=== PATIENT | female | born 1965 | race Caucasian/White ===

== ENCOUNTER 2023-12-30 09:53 | Outpatient (OUT) | payer OTHER, SELFPAY ==
--- NOTE | 2023-12-30 09:57 | US_ITS ---
The [address] [address] Patient Name: GARY FORTE MRN: [id number] date: 1965 Sex: F Assigned Patient Location: US Current Patient Location: Accession/Order Number: [id number] Exam Date: 12/30/2023 10:06 Report Date: 12/31/2023 00:35 At the request of: MARIPOSA FRANK Procedure: US right upper quadrant EXAM: US right upper quadrant HISTORY: Elevated Liver Function Test R79.89 COMPARISON: None. TECHNIQUE: Right upper quadrant ultrasound performed FINDINGS: Features of hepatic steatosis. No focal liver lesions. No visualized gallstones. No biliary duct dilatation Pancreas not well-seen. Right kidney within normal limits. US/US right upper quadrant IMPRESSION: Features of hepatic steatosis. No gallstones or biliary duct dilatation Electronically authenticated by: JANE ORELLANA Date: 12/31/2023 00:35
== END 2023-12-30 09:54 | disposition home or self-care (01) ==
LOC: US 09:53
PROVIDERS: PCP Family Medicine; Visit Provider Family Medicine
DX: R79.89 Other specified abnormal findings of blood chemistry (principal)
CPT/HCPCS: 76705

== ENCOUNTER 2024-12-12 08:25 | Outpatient (OUT) | payer OTHER, SELFPAY ==
--- OUTSIDE RECORDS SUMMARY | 2024-12-05 13:45 | XMS_ITS | Encounter Summary ---
Author Organization [facility] Address [address] [facility] [place] [address] Care Team Providers Care Mule Operator Name Role Phone Norma Eli MD Primary Care Provider [phone] Reason for Visit * Reason Comments Pain Encounter Details Date Type Department Care Team (Late st Contact Info) Description 12/05/2024 1:45 PM EDT Office Visit [facility] [address] [facility] [address] [place] [phone] Jr. Peter Michele, DO [address] [place] [address] Social History Tobacco Use Types Packs/Day Years Used Date Smoking Tobacco: Never Smokeless Tobacco: Never Alcohol Use Standard Drinks/Week Comments Not Currently 10 (1 standard drink = 0.6 oz pu re alcohol) N/A Beer B1300 Health Literacy Answer Date Recor ded How often do you need to hav e someone help you when you read instructions, pamphlets, or other written material from your doctor or pharmacy? Never 12/07/2024 Humiliation, Afraid, Rape, and Kick questionnair e Answer Date Recorded Within the last year, have y ou been afraid of your partner or ex-partner? No 12/07/2024 Within the last year, have y ou been humiliated or emotionally abused in other ways by your partner or ex-partner? No Within the last year, have y ou been kicked, hit, slapped, or otherwise physically hurt by your partner or ex-partner? No 12/07/2024 Within the last year, have y ou been raped or forced to have any kind of sexual activity by your partner or ex-partner? No 12/07/2024 Social Connection and Isolat ion Panel [NHANES] Answer Date Recorded In a typical week, how many times do you talk on the phone with family, friends, or neighbors? More than three times a week 12/07/2024 How often do you get togethe r with friends or relatives? Twice a week 12/07/2024 How often do you attend chur or jew services? Never 12/07/2024 Do you belong to any clubs o r organizations such as rastafari groups, unions, fraternal or athletic groups, or school groups? No 12/07/2024 How often do you attend meet ings of the clubs or organizations you belong to? Never 12/07/2024 Are you , , di vorced, , never , or living with a partner? 12/07/2024 AUDIT-C Answer Date Recorded Q1: How often do you have a drink containing alcohol? Never 12/07/2024 Q2: How many drinks containi ng alcohol do you have on a typical day when you are drinking? Patient does not drink Q3: How often do you have si x or more drinks on one occasion? Never 12/07/2024 Overall Financial Resource Strain (CARDIA) Answe r Date Recorded How hard is it for you to pa y for the very basics like food, housing, medical care, and heating? Not hard at all 12/07/2024 [facility] Occupat ional Health - Occupational Stress Questionnaire Answer Date Recorded Do you feel stress - tense, restless, nervous, or anxious, or unable to sleep at night because your mind is troubled all the time - these days? Only a little 12/07/2024 Exercise Vital Sign Answer Date Recorde d On average, how many days pe r week do you engage in moderate to strenuous exercise (like a brisk walk)? 7 days 12/07/2024 On average, how many minutes do you engage in exercise at this level? 60 min 12/07/2024 Hunger Vital Sign Answer Date Recorded Within the past 12 months, y ou worried that your food would run out before you got the money to buy more. Never true 12/08/19 25 Within the past 12 months, t he food you bought just didn't last and you didn't have money to get more. Never true 12/07/2024 PRAPARE - Transportation Answer Date Re corded In the past 12 months, has l ack of transportation kept you from medical appointments or from getting medications? No 11/27 In the past 12 months, has l ack of transportation kept you from meetings, work, or from getting things needed for daily living? No 12/07/2024 Housing Stability Vital Sign Answer Tom e Recorded In the last 12 months, was t here a time when you were not able to pay the mortgage or rent on time? No 04/13/2023 In the last 12 months, how many places have you lived? 1 04/13/2023 In the last 12 months, was t here a time when you did not have a steady place to sleep or slept in a detention (including now)? No 04/13/2023 Housing Stability Vital Sign Answer Tom e Recorded In the last 12 months, was t here a time when you were not able to pay the mortgage or rent on time? No 12/07/2024 Number of Times Moved in the Last Year Not on fi le 12/07/2024 At any time in the past 12 m [facility], were you homeless or living in a detention (including now)? No 12/07/2024 Comments Unknown Sex and Gender Information Value Date Recorded Sex Assigned at Female 01/02/2023 8:41 PM EDT Legal Sex Female 7:09 PM EDT Gender Identity Female 01/02/2023 8:41 PM EDT Sexual Orientation Straight 01/02/2023 8: 41 PM EDT documented as of this encounter Functional Status * Audit-C Score Answer Date of Assessment Author 0 12/07/2024 8:39 AM EDT Mychart, Generic * Q1: How often do you have a drink containing alcohol? Answer Date of Assessment Author Never 12/07/2024 8:39 AM EDT Mychart, Generic * Q2: How many drinks containing alcohol do you have on a typical day when you are drinking? Answer Date of Assessment Author Patient does not drink 12/07/2024 8:39 AM EDT My chart, Generic * Q3: How often do you have six or more drinks on one occasion? Answer Date of Assessment Author Never 12/07/2024 8:39 AM EDT Mychart, Generic documented as of this encounter Plan of Treatment Upcoming Encounters Date Type Department Care Team (Late st Contact Info) Description 12/12/2024 11:30 AM EDT [facility] [address] [facility] [address] [place] [phone] 12/18/2024 2:00 PM EDT Office Visit [facility] [address] [place] [phone] Av Mcdonald, PA [address] [place] [phone] 12/19/2024 8:30 AM EDT Office Visit [facility] [address] [facility] [address] [place] [address] Maria Eugenia Dangelo NP [address] [email or web address] [address] [place] [address] 01/24/2025 2:00 PM EDT Office Visit [facility] [address] [place] [phone] Richard Redding ACADEMIC SUPPORT COORDINATOR [address] [place] [address] 02/05/2025 9:15 AM EDT Office Visit [facility] [address] [facility] [address] [place] [address] Mark Hadley DPM [address] [facility] [[email or web address]] [address] [place] [address] documented as of this encounter Visit Diagnoses Not on filedocumented in this encounter Care Teams Mule Operator Relationship Specialty Start Date End Date Norma Eli MD [address] [place] [address] PCP - General Family Medicine 10/05/22 documented as of this encounter
--- OUTSIDE RECORDS SUMMARY | 2024-12-11 09:30 | XMS_ITS | Encounter Summary ---
Author Organization [facility] Address [address] [place] [address] Care Team Providers Care Physical Education Department Chair Name Role Phone Norma Eli MD Primary Care Provider [phone] Encounter Details Date Type Department Care Team (Late st Contact Info) Description 12/11/2024 9:30 AM EDT Office Visit [facility] [address] [facility] [address] [place] [phone] Maria Eugenia Dangelo, SCRAP HOIST OPERATOR [address] [facility] 110 [place] [address] Wellness examination (Primary Dx); Carpal tunnel syndrome of right wrist; Acute strain of neck muscle, sequela; Thoracic myofascial strain, sequela; Moderate mixed hyperlipidemia not requiring statin therapy ; Family history of colon cancer; ETD (Eustachian tube dysfunction), bilateral; Seasonal allergic rhinitis due to pollen; Encounter for screening mammogram for malignant neoplasm of breast Social History Tobacco Use Types Packs/Day Years Used Date Smoking Tobacco: Never Smokeless Tobacco: Never Tobacco Cessation:Counseling Given: Yes Alcohol Use Standard Drinks/Week Comments Not Currently [...] week 12/07/2024 How often do you attend [facility] or baptism services? Never 12/07/2024 Do you belong to any clubs o r organizations such as advent groups, unions, fraternal or athletic groups, or [...] and heating? Not hard at all 12/07/2024 PHQ-2 Answer Date Recorded Patient Health Questionnaire-2 Score 0 12/11/2024 [facility] Occupat ional Health - Occupational Stress [...] place to sleep or slept in a custodial (including now)? No 04/13/2023 Housing Stability Vital Sign Answer Tom e Recorded In the last 12 months, was t here a time when you were not able to pay the mortgage or rent on time? No 12/07/2024 Number of Times Moved in the Last Year Not on fi le 12/07/2024 At any time in the past 12 m [facility], were you homeless or living in a custodial (including now)? No 12/07/2024 Comments Unknown Sex and Gender Information Value Date Recorded Sex Assigned at Female 01/02/2023 8:41 PM EDT Legal Sex Female 7:09 PM EDT Gender Identity Female 01/02/2023 8:41 PM EDT Sexual Orientation Straight 01/02/2023 8: 41 PM EDT documented as of this encounter Last Filed Vital Signs Vital Sign Reading Time Taken Comments Blood Pressure 124/74 12/11/2024 9:38 AM EDT Pulse 68 12/11/2024 9:38 AM EDT Temperature - - Respiratory Rate 16 12/11/2024 9:38 AM EDT Oxygen Saturation 98% 12/11/2024 9:38 AM EDT Inhaled Oxygen Concentration - - Weight 65.3 kg (144 lb) 12/11/2024 9:38 AM EDT Height 160 cm (5' 3 ) 12/11/2024 9:38 AM EDT Body Mass Index 25.51 12/11/2024 9:38 AM EDT documented in this encounter Functional Status * Over the past 2 weeks, how often have you been bothered by any of the following problems? Question Answer Date of Assessment Author Little interest or pleasure in doing things Not at all 12/11/2024 9:32 AM EDT JULI VINES Feeling down, depressed, or hopeless Not at all 11/27 9:32 AM EDT JULI VINES Patient Health Questionnaire-2 Score 0 11/27 9:32 AM EDT JULI VINES documented as of this encounter Progress Notes * Maria Eugenia Dangelo NP - 12/11/2024 9:30 AM EDT Images from the original note were not included. Subjective Patient ID: Yesenia Serrano is a 59 y.o. female who presents for a wellness. Yesenia presents today for a yearly wellness. Patient is due for labs and mammogram. Over the past 2 weeks, how often have you been bothered by any of the following problems? Little interest or pleasure in doing things: Not at all Feeling down, depressed, or hopeless: Not at all Patient Health Questionnaire-2 Score: 0 Current Outpatient Medications on File Prior to Visit Medication Sig Dispense Refill Alpha-Lipoic Acid 300 MG capsule fexofenadine-pseudoephedrine ER (Charleen-D 24) 180-240 MG 24 hr tablet Take 1 tablet by mouth DailyDo not crush, chew, or split. 30 tablet 3 lovastatin (Mevacor) 40 MG tablet Multiple Vitamins-Minerals (ALIVE WOMENS GUMMY PO) Take 1 each by mouth in the morning. omeprazole (PriLOSEC) [address] capsule [DISCONTINUED] baclofen (Lioresal) 10 MG tablet Take 1 tablet (10 mg) by mouth in the morning and 1tablet (10 mg) in the evening and 1 tablet (10 mg) before bedtime. (Patient not taking: Reported on12/05/2024) 90 tablet 3 No current facility-administered medications on file prior to visit. I have reviewed and reconciled the history and medication list with the patient today. No Known Allergies Social History Tobacco Use Smoking status: Never Smokeless tobacco: Never Vaping Use Vaping status: Never Used Substance Use Topics Alcohol use: Not Currently Alcohol/week: 10.0 standard drinks of alcohol Comment: N/A Beer Drug use: Never Family History Problem Relation Name Age of Onset Brain Aneurysm Mother Colon cancer Father 33 Cancer Father's Brother Dilshad Fuentes Other (Bladder cancer) Maternal Grand[place] Diabetes Maternal Grandfather Jaylin [place] Diabetes Paternal Grandmother Past Medical History: Diagnosis Date Fractured hand right Headache High cholesterol (HHS-HCC) x2 Reflux esophagitis Past Surgical History: Procedure Laterality Date BUNIONECTOMY 02/27 & 12 CARPAL TUNNEL RELEASE Right 08/30/2024 RT CTR- DR QUISPE SECTION, LOW TRANSVERSE COLONOSCOPY w/Dr. vEans CYST REMOVAL Left wrist Visit Vitals Smoking Status Never Review of Systems Constitutional: Negative. HENT: Negative. Eyes: Negative. Respiratory: Negative. Cardiovascular: Negative. Gastrointestinal: Negative. Genitourinary: Negative. Musculoskeletal: Negative. Skin: Negative. Neurological: Negative. Psychiatric/Behavioral: Negative. Endocrine: Negative. Objective Physical Exam Vitals reviewed. Constitutional: Appearance: Normal appearance. HENT: Head: Normocephalic. Right Ear: Tympanic membrane normal. Left Ear: Tympanic membrane normal. Nose: Nose normal. Mouth/Throat: Mouth: Mucous membranes are moist. Pharynx: Oropharynx is clear. Eyes: Conjunctiva/sclera: Conjunctivae normal. Pupils: Pupils are equal, round, and reactive to light. Cardiovascular: Rate and Rhythm: Normal rate. Pulmonary: Effort: Pulmonary effort is normal. Abdominal: General: Bowel sounds are normal. Palpations: Abdomen is soft. Musculoskeletal: General: Normal range of motion. Cervical back: Neck supple. Skin: General: Skin is warm and dry. Neurological: General: No focal deficit present. Mental Status: She is alert and oriented to person, place, and time. Psychiatric: Mood and Affect: Mood normal. Behavior: Behavior normal. Thought Content: Thought content normal. Judgment: Judgment normal. Assessment/Plan Diagnoses and all orders for this visit: Wellness examination - CBC; Future - Comprehensive metabolic panel; Future Wellness form reviewed in detail with the patient. Encouraged patient to stay up to date on immunizations and preventative testing. Encouraged healthy diet, stay active. Will continue with yearly wellness exams. Carpal tunnel syndrome of right wrist Pt had surgery on the right. She is going to have surgery on the left next month with Dr. Quispe. Acute strain of neck muscle, sequela This condition is resolved Thoracic myofascial strain, sequela This condition is resolved Moderate mixed hyperlipidemia not requiring statin therapy - CBC; Future - Comprehensive metabolic panel; Future - Lipid panel; Future Await lab Family history of colon cancer Due for colonoscopy 2028. She is asymptomatic. ETD (Eustachian tube dysfunction), bilateral - CBC; Future Pt has been taking Charleen D and this condition has resolved. Seasonal allergic rhinitis due to pollen - CBC; Future - Comprehensive metabolic panel; Future This is a chronic medical condition that is stable since last assessment. No changes in treatment are suggested at this time. Encounter for screening mammogram for malignant neoplasm of breast - Bilateral screening mammogram; Future Await mammogram No follow-ups on file. documented in this encounter Plan of Treatment Upcoming Encounters Date Type Department Care Team (Late st Contact Info) Description 12/12/2024 11:30 AM EDT Ancillary Procedure [facility] [address] [place] [address] 12/18/2024 2:00 PM EDT Office Visit [facility] [address] [place] [address] Av Mcdonald PA [address] [place] [address] 12/19/2024 8:30 AM EDT Office Visit [facility] [address] [facility] [address] [place] [phone] Maria Eugenia Dangelo NP [address] [facility] [address] [place] [address] 01/24/2025 2:00 PM EDT Office Visit [facility] [address] [place] [phone] Richard Redding, MAE [address] [place], [place] [phone] 02/05/2025 9:15 AM EDT Office Visit [facility] [address] [facility] [address] [place] [phone] Mark Hadley DPM [address] [facility] [address] [place] [address] Scheduled Orders Name Type Priority Associated Diagnoses Orde r Schedule CBC Lab Routine Wellness examination Moderate mixed hyperlipidemia not requiring statin therapy ETD (Eustachian tube dysfunction), bilateral Seasonal allergic rhinitis due to pollen Expected: 12/11/2024 (Approximate), Expires: 12/11/2025 Comprehensive metabolic panel Lab Routine Wellness examination Moderate mixed hyperlipidemia not requiring statin therapy Seasonal allergic rhinitis due to pollen Expected: 12/11/2024 (Approximate), Expires: 12/11/2025 Lipid panel Lab Routine Moderate mixed hyperlipidemia not requiring statin therapy Expected: 12/11/2024 (Approximate), Expires: 12/11/2025 Bilateral screening mammogram with tomosynthesis Imaging Routine Encounter for screening mammogram for malignant neoplasm of breast Expected: 12/11/2024, Expires: 02/11/2026 documented as of this encounter Visit Diagnoses Diagnosis Wellness examination- Primary Carpal tunnel syndrome of right wrist Acute strain of neck muscle, sequela Thoracic myofascial strain, sequela Moderate mixed hyperlipidemia not requiring statin therapy Family history of colon cancer Family history of malignant neoplasm of gastrointestinal tract ETD (Eustachian tube dysfunction), bilateral Seasonal allergic rhinitis due to pollen Encounter for screening mammogram for malignant neoplasm of breast documented in this encounter Care Teams Physical Education Department Chair Relationship Specialty Start Date End Date Norma Eli MD [address] [place] [address] PCP - General Family Medicine 10/05/22 documented as of this encounter
--- OUTSIDE RECORDS SUMMARY | 2024-12-12 08:29 | XMS_ITS | Encounter Summary ---
Author Organization [facility] Address [address] [place] [address] Care Team Providers Care Telecom Field Technician Name Role Phone Norma Frank MD Primary Care Provider [phone] Encounter Details Date Type Department Care Team (Late st Contact Info) Description 12/31/2023 Clinisync Result Encounter [facility] External Department Unsolicited Norma Frank MD [address] [place] [address] Social History Tobacco Use Types Packs/Day Years Used Date Smoking Tobacco: Never Smokeless Tobacco: Never Alcohol Use Standard Drinks/Week Comments Yes 10 (1 standard drink = 0.6 oz pu re alcohol) Humiliation, Afraid, Rape, and Kick questionnair e Answer Date Recorded Within the last year, have y ou been afraid of your partner or ex-partner? No 04/13/2023 Within the last year, have y ou been humiliated or emotionally abused in other ways by your partner or ex-partner? No Within the last year, have y ou been kicked, hit, slapped, or otherwise physically hurt by your partner or ex-partner? No 04/13/2023 Within the last year, have y ou been raped or forced to have any kind of sexual activity by your partner or ex-partner? No 04/13/2023 Social Connection and Isolat ion Panel [NHANES] Answer Date Recorded In a typical week, how many times do you talk on the phone with family, friends, or neighbors? More than three times a week 04/13/2023 How often do you get togethe r with friends or relatives? More than three times a week 04/13/2023 How often do you attend chur ch or jain services? Never 04/13/2023 Do you belong to any clubs o r organizations such as episcopal groups, unions, fraternal or athletic groups, or school groups? No 04/13/2023 How often do you attend meet ings of the clubs or organizations you belong to? Never 04/13/2023 Are you , , di vorced, , never , or living with a partner? 04/13/2023 AUDIT-C Answer Date Recorded Q1: How often do you have a drink containing alcohol? 4 or more times a week 06/12/2023 Q2: How many drinks containi ng alcohol do you have on a typical day when you are drinking? 3 or 4 Q3: How often do you have si x or more drinks on one occasion? Daily or almost daily 06/12/2023 Overall Financial Resource Strain (CARDIA) Answe r Date Recorded How hard is it for you to pa y for the very basics like food, housing, medical care, and heating? Not hard at all 04/13/2023 [facility] of Occupat ional Health - Occupational Stress Questionnaire Answer Date Recorded Do you feel stress - tense, restless, nervous, or anxious, or unable to sleep at night because your mind is troubled all the time - these days? Rather much 04/13/2023 Exercise Vital Sign Answer Date Recorde d On average, how many days pe r week do you engage in moderate to strenuous exercise (like a brisk walk)? 1 day 04/13/2023 On average, how many minutes do you engage in exercise at this level? 10 min 04/13/2023 Hunger Vital Sign Answer Date Recorded Within the past 12 months, y ou worried that your food would run out before you got the money to buy more. Never true 04/13/20 23 Within the past 12 months, t he food you bought just didn't last and you didn't have money to get more. Never true 04/13/2023 PRAPARE - Transportation Answer Date Re corded In the past 12 months, has l ack of transportation kept you from medical appointments or from getting medications? No 03/30 In the past 12 months, has l ack of transportation kept you from meetings, work, or from getting things needed for daily living? No 04/13/2023 Housing Stability Vital Sign Answer [...] place to sleep or slept in a mcc (including now)? No 04/13/2023 Comments Unknown Sex and Gender Information Value Date Recorded Sex Assigned at Female 01/02/2023 8:41 PM EDT Legal Sex Female 7:09 PM EDT Gender Identity Female 01/02/2023 8:41 PM EDT Sexual Orientation Straight 01/02/2023 8: 41 PM EDT documented as of this encounter Plan of Treatment Upcoming Encounters Date Type Department Care Team (Late st Contact Info) Description 12/12/2024 11:30 AM EDT Ancillary Procedure [facility] [address] [facility] 130 [place] [address] 12/18/2024 2:00 PM EDT Office Visit [facility] [address] [place] [address] Av Mcdonald PA [address] [place] [address] 12/19/2024 8:30 AM EDT Office Visit [facility] [address] [facility] 110 [place] [phone] Maria Eugenia Dangelo NP [address] [facility] 110 [place] [address] 01/24/2025 2:00 PM EDT Office Visit [facility] [address] [facility] [place] [address] Richard Redding, MAE 629 [place], [place] [address] 02/05/2025 9:15 AM EDT Office Visit [facility] [address] [place] [address] Mark Hadley, KELLEY [address] [place] [address] documented as of this encounter Procedures Procedure Name Priority Date/Time Associated Diagnosis Comments US RIGHT UPPER QUADRANT 12/31/2023 12:35 AM EDT documented in this encounter Results * US RIGHT UPPER QUADRANT (12/31/2023 12:35 AM EDT) Anatomical Region Laterality Modality Other 12/31/2023 12:3 5 AM EDT Narrative 12/31/2023 12:38 AM EDT [place] [id number] Ultrasound Report Signed Patient: GARY FORTE MR#: [id number] : 1965 Acct:[id number] Age/Sex: 58 / F ADM Date: 12/30/23 Loc: US Attending Dr: NORMA FRANK Ordering Physician: NORMA FRANK Date of Service: 12/30/23 Procedure(s): US right upper quadrant Accession Number(s): [id number] cc: NORMA FRANK [address] [address] Patient Name: GARY FORTE MRN: [id number] date: 1965 Sex: F Assigned Patient Location: US Current Patient Location: Accession/Order Number: [id number] Exam Date: 12/30/2023 10:06 Report Date: 12/31/2023 00:35 At the request of: NORMA FRANK Procedure: US right upper quadrant EXAM: US right upper quadrant HISTORY: Elevated Liver Function Test R79.89 COMPARISON: None. TECHNIQUE: Right upper quadrant ultrasound performed FINDINGS: Features of hepatic steatosis. No focal liver lesions. No visualized gallstones. No biliary duct dilatation Pancreas not well-seen. Right kidney within normal limits. US/US right upper quadrant IMPRESSION: Features of hepatic steatosis. No gallstones or biliary duct dilatation Electronically authenticated by: JANE ORELLANA Date: 12/31/2023 00:35 Dictated By: Jane Orellana M.A. Signed By: 12/31/2337 DD/ TD/TT: Stain Remover: Procedure Note Radiology, Radiologist, MD - 12/31/2023 [place] [address] Ultrasound Report Signed Patient: GARY FORTEMR#: [id number] : 1965Acct:[id number] Age/Sex: 58 / FADM Date: 12/30/23 Loc: US Attending Dr: NORMA FRANK Ordering Physician: NORMA FRANK Date of Service: 12/30/23 Procedure(s): US right upper quadrant Accession Number(s): [id number] cc: NORMA FRANK [place] [id number] Patient Name: GARY FORTE MRN: [id number] date: 1965 Sex: F Assigned Patient Location: US Current Patient Location: Accession/Order Number: [id number] Exam Date: 12/30/2023 10:06 Report Date: 12/31/2023 00:35 At the request of: NORMA FRANK Procedure: US right upper quadrant EXAM: US right upper quadrant HISTORY: Elevated Liver Function Test R79.89 COMPARISON: None. TECHNIQUE: Right upper quadrant ultrasound performed FINDINGS: Features of hepatic steatosis. No focal liver lesions. Novisualized gallstones. No biliary duct dilatation Pancreas not well-seen. Rightkidney within normal limits. US/US right upper quadrant IMPRESSION: Features of hepatic steatosis. No gallstones or biliary duct dilatation Electronically authenticated by: JANE ORELLANA Date: 12/31/2023 00:35 Dictated By: Jane Orellana M.A. Signed By:12/31/23 0038 DD/ 003 TD/TT: Stain Remover: us Norma Frank MD [facility] Final Result documented in this encounter Visit Diagnoses Not on filedocumented in this encounter Care Teams Telecom Field Technician Relationship Specialty Start Date End Date Norma Frank MD [address] [place] [address] PCP - General Family Medicine 10/05/22 documented as of this encounter
--- OUTSIDE RECORDS SUMMARY | 2024-12-12 08:29 | XMS_ITS | Encounter Summary ---
Author Organization [facility] Address [address] [place] [address] Care Team Providers Care Legislative Aide Name Role Phone Norma Eli MD Primary Care Provider [phone] Encounter Details Date Type Department Care Team (Late st Contact Info) Description 10/25/2023 Abstract [facility] 112 [facility] 110 [place] [address] Norma Eli MD 112 [facility] 110 [place] [address] Social History Tobacco Use Types Packs/Day Years [...] often do you attend chur ch or advent services? Never 04/13/2023 Do you belong to any clubs o r organizations such as anglican groups, unions, fraternal or athletic groups, or [...] and heating? Not hard at all 04/13/2023 [facility] of Occupat ionnd Health - Occupational Stress Questionnaire Answer Date [...] No 04/13/2023 Housing Stability Vital Sign Answer Otm e Recorded In the last 12 months, [...] place to sleep or slept in a intermediate (including now)? No 04/13/2023 Comments Unknown Sex [...] 12/12/2024 11:30 AM EDT Ancillary Procedure [facility] [address] [place] [facility] [facility] 130 [place] [address] 12/18/2024 2:00 PM EDT Office Visit [facility] [address] [place] [address] Av Mcdonald PA [address] [place] [address] 12/19/2024 8:30 AM EDT Office Visit [facility] 112 [facility] 110 [place] [address] Maria Eugenia Dangelo RESHIPPING CLERK 112 [facility] 110 [place] [address] 01/24/2025 2:00 PM EDT Office Visit [facility] 629 [place] [address] Richard Redding, MAE 629 [place] [address] 02/05/2025 9:15 AM EDT Office Visit [facility] [address] [facility] 100 [place] [address] Mark Hadley DPM [address] [facility] 100 [place] [address] documented as of this encounter Visit Diagnoses Not on filedocumented in this encounter Care Teams Legislative Aide Relationship Specialty Start Date End Date Norma Eli MD 112 [facility] 110 [place] [address] PCP - General Family Medicine 10/05/22 documented as of this encounter
--- OUTSIDE RECORDS SUMMARY | 2024-12-12 08:29 | XMS_ITS | Encounter Summary ---
Author Organization [facility] Address [address] [place] [address] Care Team Providers Care Tie Up Worker Name Role Phone Norma Eli MD Primary Care Provider [phone] Encounter Details Date Type Department Care Team (Late st Contact Info) Description 03/06/2024 Abstract [facility] 112 [address] [facility] 110 [place] [address] Norma Eli MD 112 [facility] 110 [place] [address] Social History Tobacco Use Types Packs/Day Years Used Date Smoking Tobacco: Never Smokeless Tobacco: Never Alcohol Use Standard Drinks/Week Comments Yes 10 (1 standard drink = 0.6 oz pu re alcohol) N/A Beer Humiliation, Afraid, Rape, and Kick questionnair e [...] 04/13/2023 How often do you attend chur or pentecostal services? Never 04/13/2023 Do you belong to any clubs o r organizations such as religious groups, unions, fraternal or athletic groups, or [...] and heating? Not hard at all 04/13/2023 [facility] of Occupat ionwy Health - Occupational Stress Questionnaire Answer Date [...] place to sleep or slept in a long-term (including now)? No 04/13/2023 Comments Unknown Sex [...] 12/12/2024 11:30 AM EDT Ancillary [facility] [address] [facility] [facility] 130 [place] [address] 12/18/2024 2:00 PM EDT Office Visit [facility] [address] [place] [address] Av Mcdonald PA [address] [place] [address] 12/19/2024 8:30 AM EDT Office Visit [facility] 112 [facility] 110 [place] [address] Maria Eugenia Dangelo, PER DIEM PHYSICAL THERAPIST [address] [facility] 110 [place] [address] 01/24/2025 2:00 PM EDT Office Visit [facility] 629 [facility] [place] [place] [address] Richard Redding, PER DIEM PHYSICAL THERAPIST 629 [place] [address] 02/05/2025 9:15 AM EDT Office Visit [facility] [address] [facility] 100 [place] [address] Mark Hadley DPM [address] [facility] 100 [place] [address] documented as of this encounter Visit Diagnoses Not on filedocumented in this encounter Care Teams Tie Up Worker Relationship Specialty Start Date End Date Norma Eli MD [address] [place] [address] 110 [place] [address] PCP - General Family Medicine 10/05/22 documented as of this encounter
--- OUTSIDE RECORDS SUMMARY | 2024-12-12 08:29 | XMS_ITS | Encounter Summary ---
Author Organization [facility] Address [address] [place] [address] Care Team Providers Care Cut Lace Machine Operator Name Role Phone Norma Eli MD Primary Care Provider [phone] Encounter Details Date Type Department Care Team (Late st Contact Info) Description 02/22/2024 Abstract [facility] 112 [facility] 110 [place] [address] Norma Eli MD 112 [facility] 110 [place] [address] Social History Tobacco Use Types Packs/Day Years [...] How often do you attend chur or baptism services? Never 04/13/2023 Do you belong to any clubs o r organizations such as amish groups, unions, fraternal or athletic groups, or [...] and heating? Not hard at all 04/13/2023 [facility] of Occupat ionsc Health - Occupational Stress Questionnaire Answer Date [...] place to sleep or slept in a skilled nursing (including now)? No 04/13/2023 Comments Unknown Sex [...] 12/12/2024 11:30 AM EDT Ancillary Procedure [facility] [address] [facility] 130 [place] [address] 12/18/2024 2:00 PM EDT Office Visit [facility] [address] [place] [address] Av Mcdonald PA [address] [place] [address] 12/19/2024 8:30 AM EDT Office Visit [facility] 112 [facility] 110 [place] [address] Maria Eugenia Dangelo, BURNING SUPERVISOR 112 [facility] 110 [place] [address] 01/24/2025 2:00 PM EDT Office Visit [facility] 629 [facility] [place] [place] [address] Richard Redding, BURNING SUPERVISOR 629 [place] [address] 02/05/2025 9:15 AM EDT Office Visit [facility] [address] [facility] 100 [place] [address] Mark Hadley DPM [address] [facility] 100 [place] [address] documented as of this encounter Visit Diagnoses Not on filedocumented in this encounter Care Teams Cut Lace Machine Operator Relationship Specialty Start Date End Date Norma Eli MD [address] [place] [address] 110 [place] [address] PCP - General Family Medicine 10/05/22 documented as of this encounter
--- OUTSIDE RECORDS SUMMARY | 2024-12-12 08:29 | XMS_ITS | Encounter Summary ---
Author Organization [facility] Address [address] [place] [address] Care Team Providers Care Natural Gas Engineer Name Role Phone Norma Eli MD Primary Care Provider [phone] Encounter Details Date Type Department Care Team (Late st Contact Info) Description 02/22/2024 Abstract [facility] 112 [facility] 110 [place] [address] Norma Eli MD 112 [facility] 110 [place] [address] Social History Tobacco Use Types Packs/Day Years [...] How often do you attend chur or islam services? Never 04/13/2023 Do you belong to any clubs o r organizations such as latter day groups, unions, fraternal or athletic groups, or [...] and heating? Not hard at all 04/13/2023 [facility] of Occupat ionnv Health - Occupational Stress Questionnaire Answer Date [...] place to sleep or slept in a longterm (including now)? No 04/13/2023 Comments Unknown Sex [...] 12/12/2024 11:30 AM EDT Ancillary Procedure [facility] [address] [facility] 130 [place] [address] 12/18/2024 2:00 PM EDT Office Visit [facility] [address] [place] [address] Av Mcdonald PA [address] [place] [address] 12/19/2024 8:30 AM EDT Office Visit [facility] 112 [facility] 110 [place] [address] Maria Eugenia Dangelo, NEWSPAPER DISTRIBUTOR SUPERVISOR 112 [facility] 110 [place] [address] 01/24/2025 2:00 PM EDT Office Visit [facility] 629 [facility] [place] [address] Richard Redding, NEWSPAPER DISTRIBUTOR SUPERVISOR 629 [place] [address] 02/05/2025 9:15 AM EDT Office Visit [facility] [address] [facility] 100 [place] [address] Mark Hadley DPM 2500 [address]. [facility] 100 [place] [address] documented as of this encounter Visit Diagnoses Not on filedocumented in this encounter Care Teams Natural Gas Engineer Relationship Specialty Start Date End Date Norma Eli MD [address] [place] [address] 110 [place] [address] PCP - General Family Medicine 10/05/22 documented as of this encounter
--- OUTSIDE RECORDS SUMMARY | 2024-12-12 08:30 | XMS_ITS | Encounter Summary ---
Author Organization [facility] Address [address] [place] [address] Care Team Providers Care Acute Care Physical Therapist Name Role Phone Norma Eli MD Primary Care Provider [phone] Encounter Details Date Type Department Care Team (Late st Contact Info) Description 04/14/2023 Abstract [facility] 112 [address] [facility] 110 [place] [address] Norma Eli MD 112 [facility] 110 [place] [address] Social History Tobacco Use Types Packs/Day Years Used Date Smoking Tobacco: Never Smokeless Tobacco: Never Alcohol Use Standard Drinks/Week Comments Yes 4 (1 standard drink = 0.6 oz pur e alcohol) Humiliation, Afraid, Rape, and Kick questionnair [...] often do you attend chur ch or yazdanism services? Never 04/13/2023 Do you belong to any clubs o r organizations such as oriental orthodox groups, unions, fraternal or athletic groups, or school groups? No 04/13/2023 How often do you attend meet ings of the clubs or organizations you belong to? Never 04/13/2023 Are you , , di vorced, , never , or living with a partner? 04/13/2023 AUDIT-C Answer Date Recorded Q1: How often do you have a drink containing alcohol? 4 or more times a week 04/13/2023 Q2: How many drinks containi ng alcohol do you have on a typical day when you are drinking? 3 or 4 Q3: How often do you have si x or more drinks on one occasion? Less than monthly 04/13/2023 Overall Financial Resource Strain (CARDIA) Answe r Date Recorded How hard is it for you to pa y for the very basics like food, housing, medical care, and heating? Not hard at all 04/13/2023 [facility] of Occupat ionor Health - Occupational Stress Questionnaire Answer Date [...] place to sleep or slept in a penitentiary (including now)? No 04/13/2023 Comments Unknown Sex and Gender Information Value Date Recorded Sex Assigned at Female 01/02/2023 8:41 PM EDT Legal Sex Female 7:09 PM EDT Gender Identity Female 01/02/2023 8:41 PM EDT Sexual Orientation Straight 01/02/2023 8: 41 PM EDT COVID-19 Exposure Response Date Recorded In the last 10 days, have yo u been in contact with someone who was confirmed or suspected to have Coronavirus/COVID-19? No / Unsure 04/13/2023 4:07 PM EST documented as of this encounter Plan of Treatment Upcoming Encounters Date Type Department Care Team (Late st Contact Info) Description 12/12/2024 11:30 AM EDT Ancillary Procedure [facility] [address] [facility] 130 [place] [address] 12/18/2024 2:00 PM EDT Office Visit [facility] [address] [place] [address] Av Mcdonald PA [address] [place] [address] 12/19/2024 8:30 AM EDT Office Visit [facility] [address] [address] Maria Eugenia Dangelo SR. OPERATIONS MANAGER 112 [facility] 110 [place] [address] 01/24/2025 2:00 PM EDT Office Visit [facility] 629 [place] [address] Richard Redding NP 629 [place], [place] [address] 02/05/2025 9:15 AM EDT Office Visit [facility] [address] [facility] 100 [place] [address] Mark Hadley DPM 2500 [address]. [facility] 100 [place] [address] documented as of this encounter Visit Diagnoses Not on filedocumented in this encounter Care Teams Acute Care Physical Therapist Relationship Specialty Start Date End Date Norma Eli MD 112 [facility] 110 [place] [address] PCP - General Family Medicine 10/05/22 documented as of this encounter
--- OUTSIDE RECORDS SUMMARY | 2024-12-12 08:30 | XMS_ITS | Encounter Summary ---
Author Organization [facility] Address [address] [place] [address] Care Team Providers Care Canvas Worker Apprentice Name Role Phone Norma Eli MD Primary Care Provider [phone] Encounter Details Date Type Department Care Team (Latest Contact Info) Description 12/05/2024 Travel Social History Tobacco Use Types Packs/Day Years [...] often do you attend chur ch or mormon services? Never 04/13/2023 Do you belong to any clubs o r organizations such as sikhism groups, unions, fraternal or athletic groups, or [...] and heating? Not hard at all 04/13/2023 [facility] of Occupat ional Health - Occupational Stress [...] place to sleep or slept in a jail (including now)? No 04/13/2023 Comments Unknown Sex [...] 12/12/2024 11:30 AM EDT Ancillary Procedure [facility] [address] [facility] 130 [place] [address] 12/18/2024 2:00 PM EDT Office Visit [facility] 629 [facility] [place] [address] Av Mcdonald PA [address] [place] [address] 12/19/2024 8:30 AM EDT Office Visit [facility] [address] [facility] 110 [place] [address] Maria Eugenia Dangelo NP [address] [facility] 110 [place] [address] 01/24/2025 2:00 PM EDT Office Visit [facility] [address] [place] [address] Richard Redding NP [address] [place] [address] 02/05/2025 9:15 AM EDT Office Visit [facility] [address] [facility] 100 [place] [address] Mark Hadley DPM [address] [facility] 100 [place] [address] documented as of this encounter Visit Diagnoses Not on filedocumented in this encounter Care Teams Canvas Worker Apprentice Relationship Specialty Start Date End Date Norma Eli MD 112 [facility] 110 [place] [address] PCP - General Family Medicine 10/05/22 documented as of this encounter
--- OUTSIDE RECORDS SUMMARY | 2024-12-12 08:30 | XMS_ITS | Encounter Summary ---
Author Organization [facility] Address [address] [place] [address] Care Team Providers Care Furnace Worker Name Role Phone Norma Eli MD Primary Care Provider [phone] Encounter Details Date Type Department Care Team (Latest Contact Info) Description 11/28/2024 Travel Social History Tobacco Use Types Packs/Day [...] often do you attend chur ch or pentecostalism services? Never 04/13/2023 Do you belong to any clubs o r organizations such as latter-day groups, unions, fraternal or athletic groups, or [...] and heating? Not hard at all 04/13/2023 [facility] [place] of Occupat ional Health - Occupational Stress [...] place to sleep or slept in a usp (including now)? No 04/13/2023 Comments Unknown Sex [...] 12/12/2024 11:30 AM EDT Ancillary Procedure [facility] [address] [facility] 130 [place] [address] 12/18/2024 2:00 PM EDT Office Visit [facility] [address] [facility] [place] [address] Av Mcdonald PA [address] [place] [address] 12/19/2024 8:30 AM EDT Office Visit [facility] [address] [facility] 110 [place] [address] Maria Eugenia Dangelo NP [address] [facility] 110 [place] [address] 01/24/2025 2:00 PM EDT Office Visit [facility] [address] [place] [address] Richard Redding NP [address] [place] [address] 02/05/2025 9:15 AM EDT Office Visit [facility] [address] [facility] 100 [place] [address] Mark Hadley DPM [address] [facility] 100 [place] [address] documented as of this encounter Visit Diagnoses Not on filedocumented in this encounter Care Teams Furnace Worker Relationship Specialty Start Date End Date Norma Eli MD [address] [facility] 110 [place] [address] PCP - General Family Medicine 10/05/22 documented as of this encounter
--- OUTSIDE RECORDS SUMMARY | 2024-12-12 08:30 | XMS_ITS | Clinical Summary ---
Author Organization [employer] s tem Address [id number] [address] [place] [address] Care Team Providers Care Machinist Mate Name Role Phone Norma Eli MD Primary Care Provider [phone] Allergies No known active allergies Medications No known medications Active Problems No known active problems Family History Medical History Relation Name Comments Colon cancer Father Cancer Maternal Grandfather bladder Diabetes Maternal Grandfather Diabetes Maternal Grandmother Aneurysm Mother Breast cancer Neg Hx Relation Name Status Comments Father Maternal Grandfather Maternal Grandmother Mother Social History Tobacco Use Types Packs/Day Years Used Date Smoking Tobacco: Never Smokeless Tobacco: Never Alcohol Use Standard Drinks/Week Comments Yes 0 (1 standard drink = 0.6 oz pur e alcohol) occassionally Childcare Answer Date Recorded Childcare Unknown 11/07/2018 Employment Answer Date Recorded Employment Unknown 11/07/2018 Purpose - Life Answer Date Recorded Purpose and direction in life Unknown Comments No Sex and Gender Information Value Date Recorded Sex Assigned at Not on file Legal Sex Female 11:29 AM EDT Gender Identity Not on file Sexual Orientation Not on file Last Filed Vital Signs Vital Sign Reading Time Taken Comments Blood Pressure 140/90 11/15/2018 1:57 PM EDT Pulse 80 11/15/2018 1:57 PM EDT Temperature - - Respiratory Rate 16 11/15/2018 1:57 PM EDT Oxygen Saturation - - Inhaled Oxygen Concentration - - Weight 60.7 kg (133 lb 12.8 oz) 11/15/2018 1:57 PM EDT Height 160 cm (5' 3 ) 11/15/2018 1:57 PM EDT Body Mass Index 23.7 11/15/2018 1:57 PM EDT Plan of Treatment Health Maintenance Due Date Last Done Comments Depression Screening 1977 Tobacco Screening 1977 Adult BMI Screening 1983 Zoster (Shingles) Vaccine (1 of 2) 2015 Pap Smear 11/15/2021 11/15/2018 DTaP,Tdap and Td Vaccines (2 - Tdap) 11/22/2022 11/22/2012 COVID-19 Vaccine (6 - 2023-2 5 season) 2024 02/14/2022, 09/03/2021, 03/29/2021, Additional history exists Influenza Vaccine 01/28/2025 02/11/2022, , 02/06/2020, Additional history exists Medical Devices Not on file Procedures Procedure Name Priority Date/Time Associated Diagnosis Comments PAP SMEAR Routine 11/15/2018 11:23 AM EDT from Last 3 Months or Most Recently Relevant to Health Maintenance Results * Pap Smear (11/15/2018 11:23 AM EDT) Cervical TP 11/15/2018 11:2 3 AM EDT 11/20/2018 11:23 AM EDT Narrative COPATH - 11/20/2018 2:48 PM EDT [facility] [address] [place] [address] Gynecologic Cytology Consultation Patient Name: GARY FORTE : 1965 (Age: 53) Gender: F Taken: 11/15/2018 Reported: 11/20/2018 Physician(s): REECE Douglas Copy To: Med. Rec. #: [id number] Acct: # [id number] Final Cytologic Interpretation Cervical (with or without endocervical) ThinPrep: Satisfactory for evaluation. NEGATIVE FOR INTRAEPITHELIAL LESION OR MALIGNANCY. The cytologic changes of atrophy are noted. Comment: This ThinPrep slide could not be successfully imaged by the Lateral SV ThinPrep Imaging System because the specimen collection vial was , so it was manually screened. Comment: This specimen cannot be sent for HPV testing because the specimen collection vial was . j11/20/2018 Interpretation performed at [facility], [address] [place] [id number], License number: [id number]. Electronically Signed Out By GONZÁLEZ Pennington (ASCP) Date of Last Menstrual Period: (None Given) Other Clinical Conditions: Screening/Routine z01.419 Matcher Offbearer exam wo/abn findings Post Menopausal Source of Specimen Cervical (with or without endocervical) ThinPrep Thin Prep Pap (WOOL SHEARER) Fee Code(s): G0123 The Pap test is a screening test with an inherent, but low, probability of error. The Pap test is primarily effective for the diagnosis and prevention of squamous cell carcinoma. Regular screening is critical for prevention. ThinPrep liquid-based slides, which meet the Resident Athletic Trainer criteria for automated screening, have been screened by the ThinPrep Imaging System (as of 02/13/07) along with an additional manual rescreening by a ventilator specialist and, if indicated, by a pathologist. Divina Ruiz SUPPLIES PACKER-GROUND CONTROL APPROACH TECHNICIAN PATHOLOGY/CYTOLOGY ORDER SAIRA Final Result COPATH from Last 3 Months or Most Recently Relevant to Health Maintenance Insurance [employer] Care Teams Machinist Mate Relationship Specialty Start Date End [place] [address] [place] [address] PCP - General Family Medicine 05/31/18
--- OUTSIDE RECORDS SUMMARY | 2024-12-12 08:30 | XMS_ITS | Encounter Summary ---
Author Organization [facility] Address [address] [place] [address] Care Team Providers Care Supervisor Body Assembly Name Role Phone Norma Eli MD Primary Care Provider [phone] Encounter Details Date Type Department Care Team (Late st Contact Info) Description 01/21/2023 Abstract [facility] [address] [facility] 110 [place] [address] Norma Eli MD [address] [facility] 110 [place] [address] Social History Tobacco Use Types Packs/Day Years Used Date Smoking Tobacco: Never Assessed Comments Unknown Sex and Gender Information Value Date Recorded Sex Assigned at Female 01/02/2023 8:41 PM EDT Legal Sex Female 7:09 PM EDT Gender Identity Female 01/02/2023 8:41 PM EDT Sexual Orientation Straight 01/02/2023 8: 41 PM EDT documented as of this encounter Plan of Treatment Upcoming Encounters Date Type Department Care Team (Late Contact Info) Description 12/12/2024 11:30 AM EDT Ancillary Procedure [facility] [address] [place] [address] [place] [phone] 12/18/2024 2:00 PM EDT Office Visit [facility] [address] [place] [address] Av Mcdonald, PA 629 [place] [address] 12/19/2024 8:30 AM EDT Office Visit [facility] [address] [facility] 110 [place] [address] Maria Eugenia Dangelo, MATERIAL CONTROL MANAGER 112 [facility] 110 [place] [address] 01/24/2025 2:00 PM EDT Office Visit [facility] [address] [place] [address] Richard Redding, MATERIAL CONTROL MANAGER 629 [facility], [place] [address] 02/05/2025 9:15 AM EDT Office Visit [facility] [address] [facility] 100 [place] [address] Mark Hadley DPM [address] [facility] [place] [address] documented as of this encounter Visit Diagnoses Not on filedocumented in this encounter Care Teams Supervisor Body Assembly Relationship Specialty Start Date End Date Norma Eli MD 112 [facility] 110 [place] [address] PCP - General Family Medicine 10/05/22 documented as of this encounter
--- OUTSIDE RECORDS SUMMARY | 2024-12-12 08:30 | XMS_ITS | Encounter Summary ---
Author Organization [facility] Address [address] [place] [address] Care Team Providers Care Area Director Of Home Health Sales Name Role Phone Norma Eli MD Primary Care Provider [phone] Encounter Details Date Type Department Care Team (Late st Contact Info) Description 12/11/2024 Sensory Networks flowsheet [facility] [address] [facility] 110 [place] [phone] Maria Eugenia Dangelo, BENCH WORKER HOLLOW HANDLE [address] [facility] 110 [place] [address] Social History Tobacco Use Types Packs/Day Years [...] How often do you attend chur or methodist services? Never 12/07/2024 Do you belong to any clubs o r organizations such as adventist groups, unions, fraternal or athletic groups, or [...] Recorded Patient Health Questionnaire-2 Score 0 12/11/2024 [facility] - Occupational Stress Questionnaire Answer [...] place to sleep or slept in a snf (including now)? No 04/13/2023 Housing Stability Vital Sign Answer Tom e Recorded In the last 12 months, was t here a time when you were not able to pay the mortgage or rent on time? No 12/07/2024 Number of Times Moved in the Last Year Not on fi le 12/07/2024 At any time in the past 12 m [facility], were you homeless or living in a snf (including now)? No 12/07/2024 Comments Unknown Sex [...] 12/12/2024 11:30 AM EDT [facility]illary [facility] [address] [place] [address] [place] [address] 12/18/2024 2:00 PM EDT Office Visit [facility] [address] [place] [address] Av Mcdonald PA [address] [place] [address] 12/19/2024 8:30 AM EDT Office Visit [facility] [address] [facility] 110 [place] [address] Maria Eugenia Dangelo NP [address] [facility] 110 [place] [address] 01/24/2025 2:00 PM EDT Office Visit [facility] [address] [place] [address] Richard Redding BENCH WORKER HOLLOW HANDLE [address] [place], [place] [address] 02/05/2025 9:15 AM EDT Office Visit [facility] [address] [facility] 100 [place] [address] Mark Hadley DPM [address] [facility] 100 [place] [address] documented as of this encounter Visit Diagnoses Not on filedocumented in this encounter Care Teams Area Director Of Home Health Sales Relationship Specialty Start Date End Date Noram Eli MD 112 [facility] 110 [place] [address] PCP - General Family Medicine 10/05/22 documented as of this encounter
--- OUTSIDE RECORDS SUMMARY | 2024-12-12 08:30 | XMS_ITS | Encounter Summary ---
Author Organization [facility] Address [address] [place] [address] Care Team Providers Care Physician Support Coordinator Name Role Phone Norma Eli MD Primary Care Provider [phone] Encounter Details Date Type Department Care Team (Latest Contact Info) Description 12/07/2024 Travel Social History Tobacco Use Types Packs/Day [...] 12/07/2024 How often do you attend chur ch or episcopal services? Never 12/07/2024 Do you belong to [...] and heating? Not hard at all 12/07/2024 [facility] of Occupat ional Health - Occupational Stress [...] place to sleep or slept in a long term (including now)? No 04/13/2023 Housing Stability Vital Sign Answer Tom e Recorded In the last 12 months, was t here a time when you were not able to pay the mortgage or rent on time? No 12/07/2024 Number of Times Moved in the Last Year Not on fi le 12/07/2024 At any time in the past 12 m [facility], were you homeless or living in a long term (including now)? No 12/07/2024 Comments Unknown Sex and Gender Information Value Date Recorded Sex Assigned at Female 01/02/2023 8:41 PM EDT Legal Sex Female 7:09 PM EDT Gender Identity Female 01/02/2023 8:41 PM EDT Sexual Orientation Straight 01/02/2023 8: 41 PM EDT documented as of this encounter Functional Status * Audit-C Score Answer Date of Assessment Author 0 12/07/2024 8:39 AM EDT Mycinderjitt, Generic * Q1: How often do you have a drink containing alcohol? Answer Date of Assessment Author Never 12/07/2024 8:39 AM EDT Mandyt, Generic * Q2: How many drinks containing [...] [facility] [address] [place] [address] [facility] [place] [address] 12/18/2024 2:00 PM EDT Office Visit [facility] [address] [place] [address] Av Mcdonald, PA [address] [facility] [address] 12/19/2024 8:30 AM EDT Office Visit [facility] [address] [place] [address] [place] [address] Maria Eugenia Dangelo NP [address] [facility] 110 [place] [address] 01/24/2025 2:00 PM EDT Office Visit [facility] [address] [address] Richard Redding, RESTAURANT MANAGING PARTNER [address] [place] [address] 02/05/2025 9:15 AM EDT Office Visit [facility] [address] [facility] 100 [place] [address] Mark Hadley DPM [address] [facility] 100 [place] [address] documented as of this encounter Visit Diagnoses Not on filedocumented in this encounter Care Teams Physician Support Coordinator Relationship Specialty Start Date End Date Norma Eli MD [address] [place] [address] [place] [address] PCP - General Family Medicine 10/05/22 documented as of this encounter
--- OUTSIDE RECORDS SUMMARY | 2024-12-12 08:30 | XMS_ITS | Encounter Summary ---
Author Organization [facility] Address [address] [facility] [place] [address] Care Team Providers Care Serging Machine Operator Automatic Name Role Phone Norma Eli MD Primary Care Provider [phone] Reason for Visit * Reason Onset Date Comments Med Refill 12/02/2024 Encounter Details Date Type Department Care Team (Late st Contact Info) Description 12/02/2024 Refill [facility] [address] [facility] 110 [place] [address] Norma Eli MD [address] [facility] 110 [place] [address] Seasonal allergic rhinitis, unspecified trigger Social History Tobacco Use Types Packs/Day Years [...] often do you attend chur ch or religion services? Never 04/13/2023 Do you belong to any clubs o r organizations such as sabianist groups, unions, fraternal or athletic groups, or [...] and heating? Not hard at all 04/13/2023 [facility] of Occupat ional Health - Occupational Stress [...] money to buy more. Never true 04/13/20 Within the past 12 months, t he [...] a long term (including now)? No 04/13/2023 Comments Unknown Sex [...] 12/12/2024 11:30 AM EDT Ancillary Procedure [facility] [address] [facility] 130 [place] [address] 12/18/2024 2:00 PM EDT Office Visit [facility] [address] [place] [address] Av Mcdonald PA [address] [place] [address] 12/19/2024 8:30 AM EDT Office Visit [facility] 112 [facility] 110 [place] [address] Maria Eugenia Dangelo NP 112 [facility] 110 [place] [address] 01/24/2025 2:00 PM EDT Office Visit [facility] 629 [place] [phone] Richard Redding, MAE 629 [facility], [place] [phone] 02/05/2025 9:15 AM EDT Office Visit [facility] [address] [facility] 100 [place] [address] Mark Hadley DPM [address] [facility] 100 [place] [address] documented as of this encounter Visit Diagnoses Diagnosis Seasonal allergic rhinitis, unspecified trigger documented in this encounter Care Teams Serging Machine Operator Automatic Relationship Specialty Start Date End Date Norma Eli MD 112 [facility] 110 [place] [address] PCP - General Family Medicine 10/05/22 documented as of this encounter
--- OUTSIDE RECORDS SUMMARY | 2024-12-12 08:30 | XMS_ITS | Clinical Summary ---
Author Organization [facility] Address [address] [place] [address] Care Team Providers Care Grinder Machine Setter Name Role Phone Norma Eli MD Primary Care Provider [phone] Allergies No known active allergies Medications Multiple Vitamins-Mineral s (ALIVE WOMENS GUMMY PO) Take 1 each by mouth in the morning. Active omeprazole (PriLOSEC) [address] capsule 4 Active lovastatin (Mevacor) 40 MG tablet 4 Active Alpha-Lipoic Acid 300 MG capsule 4 Active fexofenadine-pse udoephedrine ER (Charleen-D 24) 180-240 MG 24 hr tabletIndication s:Seasonal allergic rhinitis, unspecified trigger Take 1 tablet by mouth Daily Do not crush, chew, or split. 30 tablet 3 5 12/04/19 26 Active fexofenadine-pse udoephedrine ER (Charleen-D 24) 180-240 MG 24 hr tabletIndication s:Seasonal allergic rhinitis, unspecified trigger Take 1 tablet by mouth Daily Do not crush, chew, or split. 30 tablet 11 4 12/03/19 25 Discontinu ed(Reorder ) baclofen (Lioresal) 10 MG tabletIndication s:Acute strain of neck muscle, initial encounter Take 1 tablet (10 mg) by mouth in the morning and 1 tablet (10 mg) in the evening and 1 tablet (10 mg) before bedtime. 90 tablet 3 5 12/12/19 25 Discontinu ed(Therapy completed) Active Problems Problem Noted Date Diagnosed Date Acute strain of neck muscle 03/27/2024 Hyperlipidemia 01/18/2024 Thoracic myofascial strain 12/06/2023 Assessment & Plan (12/20/2023 10:47 AM EDT): Finishing steroid Stretching exercise discussed Assessment & Plan (12/06/2023 11:19 AM EDT): Consider PT ETD (Eustachian tube dysfunction), bilateral 01/2024 Assessment & Plan (12/20/2023 10:46 AM EDT): Already has Hearing and ENT scheduling Family history of colon cancer 05/13/2023 Carpal tunnel syndrome 04/14/2023 Assessment & Plan (03/27/2024 9:39 AM EDT): EMG Night Time cock up wrist spint Seasonal allergic rhinitis 04/14/2023 Assessment & Plan (12/20/2023 10:47 AM EDT): Has Charleen D Assessment & Plan (12/06/2023 11:20 AM EDT): I discussed with patient that while on prednisone, do not take any NSAIDs like Ibuprofen, Naprosyn, Alleve or motrin. Watch for any side effects like abdominal pain and nausea. Take the prednisone with food or milk. Prednisone may increase appetite. While on prednisone, watch for any sugar elevations. Encounters Date Type Department Care Team Description 12/11/2024 9:30 AM EDT Office Visit [facility] 112 [facility] 110 [place] [address] Maria Eugenia Dangelo, ETCHER MACHINE Wellness examination (Primary Dx); Carpal tunnel syndrome of right wrist; Acute strain of neck muscle, sequela; Thoracic myofascial strain, sequela; Moderate mixed hyperlipidemia not requiring statin therapy ; Family history of colon cancer; ETD (Eustachian tube dysfunction), bilateral; Seasonal allergic rhinitis due to pollen; Encounter for screening mammogram for malignant neoplasm of breast 12/11/2024 Bamboo flowsheet [facility] [address] [place] [place] [phone] Maria Eugenia Dangelo NP 12/11/2024 Travel 12/07/2024 Travel 12/06/2024 Telephone [facility] [address] [place] [place] [address] Norma Eli MD 12/05/2024 1:45 PM EDT Office Visit [facility] [address] [place] [address] Jr. Peter Michele, 12/05/2024 Travel 12/02/2024 Refill [facility] [address] [place] [place] [address] Norma Eli MD Seasonal allergic rhinitis, unspecified trigger 11/28/2024 Travel 10/05/2024 8:00 AM EDT Office Visit [facility] [address] [place] [address] Mark Hadley DPM Onychomycosis (Primary Dx); Onycholysis of toenail; Pain in toes of both feet 10/05/2024 Bamboo flowsheet [facility] [address] [place] [place] [address] Mark Hadley DPM 10/05/2024 Travel 10/03/2024 Travel 09/28/2024 10:30 AM EDT Office Visit [facility] [address] [place] [address] Av Mcdonald PA S/P carpal tunnel release (Primary Dx) 09/28/2024 Bamboo flowsheet [facility] [address] [place] [address] Av Mcdonald PA 09/28/2024 Travel 09/21/2024 Travel 09/14/2024 10:45 AM EDT Office Visit [facility] [address] [place] [address] Av Mcdonald PA S/P carpal tunnel release (Primary Dx) 09/14/2024 Bamboo flowsheet [facility] [address] [place] [address] Av Mcdonald PA 09/14/2024 Travel from Last 3 Months Immunizations Immunization Administration Dates Next Due DTP 11/22/2012 Influenza, injectable, MDCK, preservative free, quadrivalent 05/28/2019 Influenza, injectable, quadr ivalent, preservative free 05/13/2023,02/27/2022,02/11/2022,2020,02/06/2020 Influenza, seasonal, intrade rmal, preservative free 03/29/2018 Family History Medical History Relation Name Comments Colon cancer Father Cancer Father's Brother Dilshad Fuentes Bladder cancer Maternal Grandfather Jaylin EnriquezSalamanca Diabetes Maternal Grandfather Jaylin Salamanca Brain Aneurysm Mother Diabetes Paternal Grandmother Relation Name Status Comments Father Father's Brother Dilshad Fuentes Maternal Grandfather Jaylin Woodruff Mother Paternal Grandmother Social History Tobacco Use Types Packs/Day Years [...] often do you attend chur ch or taoist services? Never 12/07/2024 Do you belong to any clubs o r organizations such as sikh groups, unions, fraternal or athletic groups, or [...] Recorded Patient Health Questionnaire-2 Score 0 12/11/2024 [facility] - Occupational [...] in a usp (including now)? No 04/13/2023 Housing Stability Vital Sign Answer Tom e Recorded In the last 12 months, was t here a time when you were not able to pay the mortgage or rent on time? No 12/07/2024 Number of Times Moved in the Last Year Not on fi le 12/07/2024 At any time in the past 12 m [facility], were you homeless or living in a usp (including now)? No 12/07/2024 Comments Unknown Sex and Gender Information Value Date Recorded Sex Assigned at Female 01/02/2023 8:41 PM EDT Legal Sex Female 7:09 PM EDT Gender Identity Female 01/02/2023 8:41 PM EDT Sexual Orientation Straight 01/02/2023 8: 41 PM EDT Last Filed Vital Signs Vital Sign Reading Time Taken Comments Blood Pressure 124/74 12/11/2024 9:38 AM EDT Pulse 68 12/11/2024 9:38 AM EDT Temperature 37.2 C (98.9 F) 11/04/2023 8:33 AM EDT Respiratory Rate 16 12/11/2024 9:38 AM EDT Oxygen Saturation 98% 12/11/2024 9:38 AM EDT Inhaled Oxygen Concentration - - Weight 65.3 kg (144 lb) 12/11/2024 9:38 AM EDT Height 160 cm (5' 3 ) 12/11/2024 9:38 AM EDT Body Mass Index 25.51 12/11/2024 9:38 AM EDT Plan of Treatment Upcoming Encounters Date Type Department Care Team (Late st Contact Info) Description 12/12/2024 11:30 AM EDT Ancillary Procedure [facility] [address] [place] [phone] 12/18/2024 2:00 PM EDT Office Visit [facility] [address] [place] [phone] Av Mcdonald, PA [address] [place] [phone] 12/19/2024 8:30 AM EDT Office Visit [facility] [address] [facility] 110 [place] [phone] Maria Eugenia Dangelo NP [address] [facility] 110 [place] [address] 01/24/2025 2:00 PM EDT Office Visit [facility] [address] [place] [phone] Richard Redding, ETCHER MACHINE [address] [place], [place] [phone] 02/05/2025 9:15 AM EDT Office Visit [facility] [address] [facility] 100 [place] [address] Mark Hadley DPM [address] [facility] 100 [place] [address] Health Maintenance Due Date Last Done Comments CT Colonography 1965 FIT-DNA 1965 FIT 1965 FOBT 1965 Sigmoidoscopy 1965 Pap Smear 1986 Cervical Cancer Screening 1995 HPV/Cotest 1995 Mammogram 11/07/2024 11/08/2023, 03/0 01/2023, 05/31/2018, Additional history exists Influenza Vaccine (#1) 2025 , 02/27/2022, 02/11/2022, Additional history exists Colonoscopy 06/09/2033 06/09/2023, 06/08/2023, 05/30 Colorectal Cancer Screening 06/09/2033 Procedures Procedure Name Priority Date/Time Associated Diagnosis Comments BI MAMMOGRAM SCREENING TOMOSYNTHESIS BILATERAL Routine 11/08/2023 12:38 PM EDT Encounter for screening mammogram for malignant neoplasm of breast from Last 3 Months or Most Recently Relevant to Health Maintenance Results * Bilateral screening mammogram with tomosynthesis (11/08/2023 12:38 PM EDT) Anatomical Region Laterality Modality Breast Bilateral Mammography 11/08/2023 12:4 5 PM EDT Impressions 11/08/2023 1:25 PM EDT BIRADS 2 - Benign Follow-up: Routine Screening Mamm Board Certified Radiologists. Accredited by the ACR and FDA. MAMMOGRAPHY IS VERY IMPORTANT TO YOUR HEALTH. THE [employer] [employer] [place] [employer] GUIDELINES RECOMMEND THAT WOMEN 40 YEARS OF AGE AND OLDER SHOULD HAVE A MAMMOGRAM EVERY YEAR. A REMINDER LETTER WILL BE SENT AT THE APPROPRIATE TIME. THIS FACILITY UTILIZES A REMINDER SYSTEM TO ENSURE ALL PATIENTS RECEIVE REMINDER NOTIFICATIONS AT THE APPROPRIATE TIME BASED ON THE RECOMMENDATIONS OF THIS EXAM. THIS INCLUDES REMINDERS FOR ROUTINE SCREENING MAMMOGRAMS, DIAGNOSTIC MAMMOGRAMS IN WHICH THE PATIENT IS ASKED TO RETURN FOR ADDITIONAL VIEWS, OR OTHER BREAST IMAGING INTERVENTIONS WHEN APPROPRIATE. THE PATIENT WILL BE PLACED IN THE APPROPRIATE REMINDER SYSTEM INCLUDING A REMINDER AT THE APPROPRIATE TIME FOR ANY PENDING ADDITIONAL VIEWS. TRANSCRIBED BY: ELECTRONICALLY SIGNED BY: MD Lianet Segundo 11/08/2023 1:25 PM EDT EXAMINATION: BI MAMMOGRAM SCREENING TOMOSYNTHESIS BILATERAL CLINICAL HISTORY:screening COMPARISON: August 05, 2022. RESULT: Density: Heterogeneously dense [3] There is no suspicious mass, asymmetry, architectural distortion, or calcification. Typically benign calcifications. Overall appearance stable Procedure Note Mykel Shah MD - 11/08/2023 EXAMINATION: BI MAMMOGRAM SCREENING TOMOSYNTHESIS BILATERAL CLINICAL HISTORY:screening COMPARISON: August 05, 2022. RESULT: Density: Heterogeneously dense [3] There is no suspicious mass, asymmetry, architectural distortion, orcalcification. Typically benign calcifications. Overall appearancestable IMPRESSION: BIRADS 2 - Benign Follow-up: Routine Screening Mamm Board Certified Radiologists. Accredited by the ACR and FDA. MAMMOGRAPHY IS VERY IMPORTANT TO YOUR HEALTH. THE [place] [employer] [place] [employer] SOCIETYGUIDELINES RECOMMEND THAT WOMEN 40 YEARS OF AGE AND OLDER SHOULD HAVE AMAMMOGRAM EVERY YEAR. A REMINDER LETTER WILL BE SENT AT THE APPROPRIATE TIME. THIS FACILITYUTILIZES A REMINDER SYSTEM TO ENSURE ALL PATIENTS RECEIVE REMINDERNOTIFICATIONS AT THE APPROPRIATE TIME BASED ON THE RECOMMENDATIONS OF THISEXAM. THIS INCLUDES REMINDERS FOR ROUTINE SCREENING MAMMOGRAMS, DIAGNOSTICMAMMOGRAMS IN WHICH THE PATIENT IS ASKED TO RETURN FOR ADDITIONAL VIEWS,OR OTHER BREAST IMAGING INTERVENTIONS WHEN APPROPRIATE. THE PATIENT WILLBE PLACED IN THE APPROPRIATE REMINDER SYSTEM INCLUDING A REMINDER AT THEAPPROPRIATE TIME FOR ANY PENDING ADDITIONAL VIEWS. TRANSCRIBED BY: ELECTRONICALLY SIGNED BY: Mykel Shah MD Corrine SANDHU IM BI PROCEDURES Final Result from Last 3 Months or Most Recently Relevant to Health Maintenance Insurance [employer] Care Teams Grinder Machine Setter Relationship Specialty Start Date End Date Norma Eli MD [address] [address] PCP - General Family Medicine 10/05/22
--- OUTSIDE RECORDS SUMMARY | 2024-12-12 08:30 | XMS_ITS | Encounter Summary ---
Author Organization [facility] Address [address] [facility] [place] [address] Care Team Providers Care High School Principal Name Role Phone Norma Eli MD Primary Care Provider [phone] Encounter Details Date Type Department Care Team (Late st Contact Info) Description 12/06/2024 Telephone [facility] [address] [facility] 110 [place] [phone] Norma Eli MD 112 [facility] 110 [place] [address] Social History Tobacco Use Types Packs/Day Years [...] How often do you attend chur or mormon services? Never 12/07/2024 Do you belong to any clubs o r organizations such as mandaen groups, unions, fraAviacomm or athletic groups, or school groups? No [...] and heating? Not hard at all 12/07/2024 [facility] Health - Occupational [...] place to sleep or slept in a retirement (including now)? No 04/13/2023 Housing Stability Vital Sign Answer Tom e Recorded In the last 12 months, was t here a time when you were not able to pay the mortgage or rent on time? No 12/07/2024 Number of Times Moved in the Last Year Not on fi le 12/07/2024 At any time in the past 12 m [facility], were you homeless or living in a retirement (including now)? No 12/07/2024 Comments Unknown Sex and Gender Information Value Date Recorded Sex Assigned at Female 01/02/2023 8:41 PM EDT Legal Sex Female 7:09 PM EDT Gender Identity Female 01/02/2023 8:41 PM EDT Sexual Orientation Straight 01/02/2023 8: 41 PM EDT documented as of this encounter Miscellaneous Notes * Telephone Encounter - JULI VINES - 12/06/2024 3:02 PM EDT Patient will need to come in for a wellness. She hasn't had one done with us. Even her last office visit was February 2024 * Telephone Encounter - Yadira Quintanilla - 12/06/2024 2:04 PM EDT Patient is requesting a mammogram to be ordered for her to get done at the [facility] [place] documented in this encounter Plan of Treatment Upcoming Encounters Date Type Department Care Team (Late st Contact Info) Description 12/12/2024 11:30 AM EDT Ancillary Procedure [facility] [address] [place] [phone] 12/18/2024 2:00 PM EDT Office Visit [facility] [address] [place] [address] Av Mcdonald, PA [address] [place] [address] 12/19/2024 8:30 AM EDT Office Visit [facility] [address] [place] [place] [address] Maria Eugenia Dangelo NP [address] [facility] 110 [place] [address] 01/24/2025 2:00 PM EDT Office Visit [facility] [address] [facility] [place] [address] Richard Redding, AUTOMATION AND CONTROLS INSTRUCTOR [address] [place] [address] 02/05/2025 9:15 AM EDT Office Visit [facility] [address] [place] [place] [address] Mark Hadley DPM [address] [facility] 100 [place] [address] documented as of this encounter Visit Diagnoses Not on filedocumented in this encounter Care Teams High School Principal Relationship Specialty Start Date End Date Norma Eli MD 112 [facility] 110 [place] [address] PCP - General Family Medicine 10/05/22 documented as of this encounter
--- OUTSIDE RECORDS SUMMARY | 2024-12-12 08:30 | XMS_ITS | Encounter Summary ---
Author Organization [facility] Address [address] [place] [address] Care Team Providers Care Oral And Maxillofacial Pathologist Name Role Phone Norma Eli MD Primary Care Provider [phone] Encounter Details Date Type Department Care Team (Latest Contact Info) Description 12/11/2024 Travel Social History Tobacco Use Types Packs/Day [...] often do you attend chur ch or buddhist services? Never 12/07/2024 Do you belong to any clubs o r organizations such as roman catholic groups, unions, fraternal or athletic groups, or [...] Recorded Patient Health Questionnaire-2 Score 0 12/11/2024 [facility] Answer Date Recorded [...] place to sleep or slept in a correction (including now)? No 04/13/2023 Housing Stability Vital Sign Answer Tom e Recorded In the last 12 months, was t here a time when you were not able to pay the mortgage or rent on time? No 12/07/2024 Number of Times Moved in the Last Year Not on fi le 12/07/2024 At any time in the past 12 m [facility], were you homeless or living in a correction (including now)? No 12/07/2024 Comments Unknown Sex and Gender Information Value Date Recorded Sex Assigned at Female 01/02/2023 8:41 PM EDT Legal Sex Female 7:09 PM EDT Gender Identity Female 01/02/2023 8:41 PM EDT Sexual Orientation Straight 01/02/2023 8: 41 PM EDT documented as of this encounter Functional Status * Over the past 2 weeks, how often have you been bothered by any of the following problems? Question Answer Date of Assessment Author Little interest or pleasure in doing things Not at all 12/11/2024 9:32 AM MARYANNT JULI VINES Feeling down, depressed, or hopeless Not at all 11/27 9:32 AM EDT JULI VINES Patient Health Questionnaire-2 Score 0 11/27 9:32 AM EDT JULI VINES documented as of this encounter Plan of Treatment Upcoming Encounters Date Type Department Care Team (Late st Contact Info) Description 12/12/2024 11:30 AM EDT [facility]illary [facility] [address] [place] [phone] 12/18/2024 2:00 PM EDT Office Visit [facility] [address] [place] [phone] Av Mcdonald, PA [address] [place] [address] 12/19/2024 8:30 AM EDT Office Visit [facility] [address] [facility] [address] [place] [phone] Maria Eugenia Dangelo NP [address] [facility] 110 [place] [address] 01/24/2025 2:00 PM EDT Office Visit [facility] [address] [place] [phone] Richard Redding NP [address] [place], [place] [address] 02/05/2025 9:15 AM EDT Office Visit [facility] [address] [facility] 100 [place] [address] Mark Hadley DPM [address] [facility] 100 [place] [address] documented as of this encounter Visit Diagnoses Not on filedocumented in this encounter Care Teams Oral And Maxillofacial Pathologist Relationship Specialty Start Date End Date Norma Eli MD [address] [place] [address] PCP - General Family Medicine 10/05/22 documented as of this encounter
[2024-12-12 08:43] LABS: Hematocrit 41.3 % (36.0-48.0); Hemoglobin 13.6 g/dL (12.0-16.0); Immature Granulocytes Abs Auto 0.02 10^3/uL (0.00-0.03); Immature Granulocytes Pct Auto 0.2 % (0.0-0.5); Lymphocytes Absolute Auto 2.6 10^3/uL (1.2-3.8); Mean Corpuscular HGB Conc 32.9 g/dL (29.9-35.2); Mean Corpuscular Hemoglobin 30.9 pg (26.7-34.0); Mean Corpuscular Volume 93.9 fL (81.0-99.0); Platelet Count 301 10^3/uL (150-450); Red Blood Count 4.40 10^6/uL (4.20-5.40); White Blood Count 10.3 10^3/uL (4.0-11.0)
[2024-12-12 09:00] LABS: Alanine Aminotransferase 27 U/L (14-59); Albumin Globulin Ratio 1.1; Albumin Level 3.7 g/dL (3.4-5.0); Alkaline Phosphatase 128 U/L (46-116); Anion Gap 12.3; Aspartate Amino Transferase 18 U/L (15-37); Blood Urea Nitrogen 7.0 mg/dL (7.0-18.0); Calcium 9.4 mg/dL (8.5-10.1); Carbon Dioxide 29.2 mmol/L (21.0-32.0); Chloride 106 mmol/L (98-107); Cholesterol 171 mg/dL (<=200); Estimated GFR (African America >60 (>=60 mL/min/1.73m^2); Estimated GFR (Non-African Ame >60 (>=60 mL/min/1.73m^2); Globulin 3.5 g/dL; Glucose 106 mg/dL (74-106); HDL Cholesterol 68 mg/dL (40-60); Potassium 4.5 mmol/L (3.5-5.1); Sodium 143 mmol/L (136-145); Total Protein 7.2 g/dL (6.4-8.2); Triglycerides 118 mg/dL (<=150); VLDL CHOLESTEROL 23.6 mg/dL
== END 2024-12-12 08:26 | disposition home or self-care (01) ==
LOC: LAB 08:27
PROVIDERS: PCP Family Medicine; Visit Provider Nurse Practitioner Family
DX: Z00.00 Encounter for general adult medical examination without abnormal findings (principal); E78.2 Mixed hyperlipidemia; H69.93 Unspecified Eustachian tube disorder, bilateral; J30.1 Allergic rhinitis due to pollen
CPT/HCPCS: 36415; 80053; 80061; 85025